=== PATIENT | male | born 2000 | race Caucasian/White ===

== ENCOUNTER 2019-07-06 21:09 | Emergency (ER) | payer SELFPAY ==
[2019-07-06 21:15] VITALS: BP 148/91; PULSE 88; RESP 17; TEMP 36.8; O2SAT 96; BMI 25.7
--- NOTE | 2019-07-06 21:42 | W.ED.GENADLT ---
HPI - General Adult General: Chief complaint: General Medical Stated complaint: sore throat Time Seen by Provider: 07/06/19 21:20 History of Present Illness: HPI narrative: Patient is a 19-year-old male who comes to the ED with a sore throat and cough. Sore throat started 2 days ago. His cough is chronic but he does say it has gotten a little worse the past couple days. Cough is productive and produces green sputum. Patient is a daily smoker. Denies any fever, nasal congestion/drainage, ear pain, shortness of breath, nausea, vomiting, abdominal pain, dysuria, hematuria, diarrhea. Pt concerned that he and his family could have been exposed to COVID-19. He works for [employer] and heard that 1 of their frequent [employer] customers tested positive for COVID- 19. Associated symptoms: Deny chest pain, dyspnea, headache(s), nausea, rash, palpitations or vomiting Review of Systems Const: Denies: fever, chills or fatigue Eyes: Denies: change in vision or eye discomfort ENMT: Reports: throat pain and painful swallowing; Denies: nasal discharge or nasal congestion Card: Denies: chest pain, palpitations, edema, swelling of feet/ankles, shortness of breath on exertion or shortness of breath when lying down Resp: Reports: productive cough; Denies: shortness of breath or non-productive cough GI: Denies: abdominal pain, nausea, vomiting, diarrhea, constipation or blood in stool : Denies: flank pain, difficulty urinating, painful urination or blood in urine Musc: Denies: neck pain, back pain or extremity swelling Skin/Breast: Denies: rash or new lesion Neuro: Denies: headache, numbness in extremities or weakness in extremities PFSH ED PFSH: Social History Smoking and tobacco status: current every day smoker Physical Exam Narrative: EXAM NARRATIVE: Patient is a 19-year-old male who is sitting comfortably on the exam chair when I enter the room. He is showing no signs of acute distress or acute respiratory distress. Const: COMMON NORMALS: oriented x3 HENMT: COMMON NORMALS: normocephalic and TM's normal bilaterally HEAD & SCALP: normocephalic TYMPANIC MEMBRANE: TM's normal bilaterally MOUTH: oral and palatal mucosa normal THROAT: uvula midline and posterior oropharynx abnormal erythema; no cobblstoning and no exudates Eye: COMMON NORMALS: PERRL PUPIL: Yes PERRL Neck/C-Spine: COMMON NORMALS: supple GENERAL: Yes normal visual inspection Lymph: LYMPHATIC: no lymphadenopathy noted (no cervical ) Resp: COMMON NORMALS: normal respiratory effort, no retractions, no use of accessory muscles and clear to auscultation bilaterally EFFORT & INSPECTION: Yes able to speak in complete sentences, No respiratory distress, No labored and No actively coughing AUSCULTATION: clear to auscultation bilaterally Cardio: COMMON NORMALS: regular rate, regular rhythm, S1 normal heart sound, S2 normal heart sound, no gallops, no clicks, no murmurs and peripheral pulses 2+ throughout RATE: regular rate RHYTHM: regular rhythm HEART SOUNDS: S1 normal and S2 normal PERIPHERAL PULSES: pulses 2+ throughout GI: COMMON NORMALS: normal to inspection, nondistended, normoactive bowel sounds, soft to palpation, non-tender and no masses PALPATION: Yes soft : COMMON NORMALS: Yes no CVA tenderness BLADDER/KIDNEY EXAM: Yes no CVA tenderness Back/Pelvis: COMMON NORMALS: no CVA tenderness Extremity: COMMON NORMALS: normal to inspection and normal capillary refill Neuro: COMMON NORMALS: oriented x3 and moves all extremities Skin: COMMON NORMALS: no rashes or lesions noted GENERAL SKIN EXAM: no rashes or lesions noted and dry skin Course Vital Signs: Vital signs: Vital Signs Temperature 98.2 F 07/06/19 21:15 Pulse Rate 59 L 07/06/19 23:37 Respiratory Rate 16 07/06/19 23:37 Blood Pressure 123/86 07/06/19 23:37 Pulse Oximetry 98 07/06/19 23:37 MDM - General Adult MDM Narrative: Medical decision making narrative: Patient is a 19-year-old male who comes into the ED with a sore throat and cough. Physical exam was unremarkable patient was showing no signs of acute respiratory distress. Lungs were clear to auscultation bilaterally. Influenza was negative and strep was negative. Chest x-ray was normal. Patient has had possible exposure to Covid- 19 positive patient. Patient was tested for COVID .and instructed on self quarantine Lab Data: Attestation: I reviewed the patient's lab results. Labs: Lab Results 07/06/19 07/06/19 Range/Units 21:36 21:36 Influenza Type A A g Negative (Negative) Influenza Type B A g Negative (Negative) Group A Strep Rapi d Negative (Negative) Imaging Data^: CXR: Attestation: I personally reviewed and interpreted this imaging study as follows: Radiologist's impression: [facility] [address] [address] XRay Report Signed Patient: Neil Gary Unit #: [id number] : 2000 Age/Sex: 19 / M ADM Date: 07/06/19 Loc: ER Room/Bed: Attending Dr: Ordering Provider/Ordering MD: Anthony Frye Date of Service: 07/06/19 Procedure(s): XR chest 1V portable [id number] Accession Number(s): [id number] Report Number: [id number] PROCEDURE INFORMATION: Exam: XR Chest, 1 View Exam date and time: 07/06/2019 9:55 PM Age: 19 years old Clinical indication: Cough TECHNIQUE: Imaging protocol: XR of the chest Views: 1 view. COMPARISON: CR Chest 1 [place] [id number] 06/30/2018 1:21 AM FINDINGS: Lungs: No CHF/pulmonary edema. Visible lungs appear essentially clear. Pleural space: No visible pneumothorax. No definite pleural fluid. Heart/Mediastinum: Heart size is within normal limits. Bones/joints: No significant acute finding. XR/XR chest 1V portable [id number] IMPRESSION: 1. Unremarkable single view chest. 2. Other findings discussed above. Dictated By: Trevor Madrigal MD Signed By: Trevor Madrigal MD Signed Date/Time: 07/06/192233 DD/ 32 Discharge Plan Discharge Patient Disposition: Home, Self-Care Clinical Impression: Viral syndrome Condition: Stable Prescriptions: No Action No Known Home Medications RF: 0 Discharge Orders: Discharge Order (Routine); Ordered 07/06/19 Ordered By: Anthony Frye Referrals: Anisha Bernard MD [Primary Care Provider] - Discharge Diet: Regular Discharge Activity: Resume usual activity and Limit activity as instructed Patient Instructions: Viral Syndrome - Adult Activity Restrictions/Additional Instructions: Follow-up with your PCP in 7 to 10 days for reevaluation. Take Tylenol for any fevers. Drink plenty fluids and stay hydrated. COVID-19 testing was performed and results should be complete in the next 48 hours. Self quarantine during that time and if you do test positive self quarantine for 14 days. Return to the ED if you are having worsening symptoms or any trouble breathing. Discharge Date/Time: 07/06/19 23:01 Coding Level of Care Code ED Communications Planner for Fariha Thomas Exam Comprehensive
--- NOTE | 2019-07-06 21:45 | XRR_ITS ---
PROCEDURE INFORMATION: Exam: XR Chest, 1 View Exam date and time: 07/06/2019 9:55 PM Age: 19 years old Clinical indication: Cough TECHNIQUE: Imaging protocol: XR of the chest Views: 1 view. COMPARISON: CR Chest 1 [place] [id number] 06/30/2018 1:21 AM FINDINGS: Lungs: No CHF/pulmonary edema. Visible lungs appear essentially clear. Pleural space: No visible pneumothorax. No definite pleural fluid. Heart/Mediastinum: Heart size is within normal limits. Bones/joints: No significant acute finding. XR/XR chest 1V portable [id number] IMPRESSION: 1. Unremarkable single view chest. 2. Other findings discussed above.
[2019-07-06 22:26] LABS: Influenza A by IFA Negative (Negative); Influenza B by IFA Negative (Negative)
[2019-07-06 22:27] LABS: Rapid Strep A Test Negative (Negative)
[2019-07-06 22:33] VITALS: BP 126/92; PULSE 82; RESP 16; O2SAT 97
[2019-07-06 23:37] VITALS: BP 123/86; PULSE 59; RESP 16; O2SAT 98
--- NOTE | 2019-07-10 10:20 | PC.NURSE ---
CALLED PT AND INFORMED HIS THAT HIS RESULTS FOR covid-19 TESTING WERE NEGATIVE.
[2019-07-10 20:55] LABS: SARS-CoV-2 RNA: NOT DETECTED
[2019-07-10 20:56] LABS: Coronavirus Overall Results See Report; Coronavirus Qual PCR Source See Report; Pan-SARS RNA: See Report; Patient Symptomatic? NOT GIVEN
== END 2019-07-06 23:01 | disposition home or self-care (01) ==
PROVIDERS: Emergency Provider Physician Assistant; PCP Family Medicine
DX: B34.9 Viral infection, unspecified (principal); F17.200 Nicotine dependence, unspecified, uncomplicated
CPT/HCPCS: 12345; 71045; 87081; 87635; 87804; 87880; 99282; 99283

== ENCOUNTER 2019-11-18 23:06 | Emergency (ER) | payer SELFPAY ==
[2019-11-18 23:15] VITALS: BP 140/91; PULSE 80; RESP 17; TEMP 36.8; O2SAT 96; BMI 24.2
--- NOTE | 2019-11-18 23:35 | W.ED.ANIMALB ---
HPI - Animal Bite General: Chief Complaint: Animal Bite Stated Complaint: TICK BITE Time Seen by Provider: 11/18/19 23:34 History of Present Illness: HPI narrative: Patient is a 19-year-old male who comes to the ED with a tick bite on right lower extremity. Patient noticed it approximately 2 to 3 days ago removed it. It has since developed a rash. He denies any other symptoms. Associated symptoms: Deny chills, fever(s) or headache(s) Review of Systems Const: Denies: fever(s), chills, body aches or fatigue Eyes: Denies: change in vision or eye discomfort ENMT: Denies: throat pain, odynophagia, nasal discharge or nasal congestion Card: Denies: chest pain, palpitations, edema, swelling of feet/ankles, dyspnea on exertion or orthopnea Resp: Denies: dyspnea, productive cough or non-productive cough GI: Denies: abdominal pain, nausea, vomiting, diarrhea, constipation or hematochezia : Denies: flank pain, difficulty urinating, dysuria or hematuria Musc: Denies: neck pain, back pain or extremity swelling Skin/Breast: Reports: rash (rash forming where tick was removed.); Denies: new lesions Neuro: Denies: headache(s), numbness in extremities or weakness in extremities PFSH ED PFSH: Medical History Crohn's disease Major depressive disorder, recurrent Nicotine dependence with current use Psychosis Social History Smoking and tobacco status: current every day smoker cigarettes Years cigarettes smoked: 4 Quit status (tobacco): not considering quitting Second hand smoke exposure: Yes Current gender identity: Male Physical Exam Const: COMMON NORMALS: no acute distress, patient oriented x3, healthy appearing and alert GENERAL APPEARANCE: cooperative and comfortable HENMT: COMMON NORMALS: normocephalic HEAD & SCALP: normocephalic MOUTH: Normal oral and palatal mucosa present THROAT: posterior oropharynx normal and uvula midline Neck/C-Spine: COMMON NORMALS: supple GENERAL: Yes normal visual inspection Resp: COMMON NORMALS: normal respiratory effort, No retractions, No use of accessory muscles and clear to auscultation bilaterally AUSCULTATION: clear to auscultation bilaterally Cardio: COMMON NORMALS: regular rate, regular rhythm, S1 normal heart sound present, S2 normal heart sound present, No gallops present (Cardio), No clicks present (Cardio), No murmurs present (Cardio) and Peripheral pulses 2+ throughout RATE: regular rate RHYTHM: regular rhythm HEART SOUNDS: S1 normal heart sound present and S2 normal heart sound present PERIPHERAL PULSES: Peripheral pulses 2+ throughout GI: COMMON NORMALS: Normal to inspection, nondistended, normoactive bowel sounds present, Soft to palpation, non-tender and no masses PALPATION: Yes Soft to palpation : COMMON NORMALS: Yes no CVA tenderness BLADDER/KIDNEY EXAM: Yes no CVA tenderness Back/Pelvis: COMMON NORMALS: no CVA tenderness Extremity: NARRATIVE EXTREMITY EXAM: Inspection of right leg (posterior side of upper leg) where tick bite was removed showed erythema migrans rash. Neuro: COMMON NORMALS: patient oriented x3 and moves all extremities SENSORIUM/ORIENTATION: Yes alert Skin: NARRATIVE SKIN EXAM: Patient had erythema migrans rash around tick bite on right upper leg. Course Vital Signs: Vital signs: Vital Signs Temperature 98.3 F 11/18/19 23:15 Pulse Rate 80 11/18/19 23:15 Respiratory Rate 16 11/19/19 00:08 Blood Pressure 140/91 11/18/19 23:15 Pulse Oximetry 96 11/18/19 23:15 MDM - Animal Bite MDM Narrative: Medical decision making narrative: Patient is a 19-year-old male who comes to the ED with tick bite on right leg that has since developed a rash. Patient says he removed tick approximately 2 to 3 days ago. Physical exam of tick bite site showed erythema migrans rash. Patient is showing no signs of any distress, physical exam was normal. Patient denies any other symptoms such as fever, chills body aches. White blood cell count 10.2 and the rest of CBC and CMP were unremarkable. Tick panel was ordered and pending. Patient was given a dose of doxycycline while here in the ED. He was discharged with a prescription for doxycycline. Patient requested PCP referral so I placed an order with case management. Patient was told that case management will be contacting him in the next several days to set up an appointment with the PCP. Return to ED precautions given. Take full course of antibiotic as prescribed. I told patient that he can call the hospital to find out tick panel results in the next 2 to 3 days. Patient understood and agreed with plan. Lab Data: Attestation: I reviewed the patient's lab results. Labs: Lab Results 11/18/19 11/18/19 Range/Units 00:00 00:00 WBC 10.2 H (4.0-10.0) 10^3/ uL RBC 4.92 (4.1-5.3) 10^6/u L Hgb 15.3 (11.7-16.6) g/dL Hct 43.4 (42.0-52.0) % MCV 88.2 (80-94) fL MCH 31.1 (28.0-34.0) pg MCHC 35.3 (30.0-36.0) g/dL RDW 12.0 L (12.1-15.1) % Plt Count 180 (130-400) 10^3/c mm MPV 9.9 (7.4-10.4) fL Neut % (Auto) 44.3 % Lymph % (Auto) 44.1 % Kerr % (Auto) 8.1 % Eos % (Auto) 2.0 % Baso % (Auto) 0.5 % Neut # (Auto) 4.53 (1.8-7.7) 10^3/u L Lymph # (Auto) 4.5 (0.8-4.8) 10^3/u L Kerr # (Auto) 0.8 (0.2-0.9) 10^3/u L Eos # (Auto) 0.2 (0.0-0.8) 10^3/u L Baso # (Auto) 0.1 (0.0-0.1) 10^3/u L Nucleated RBC % (a uto) 0 % Nucleated RBCs # 0.0 /100WBC Sodium 140 (136-145) mmol/L Potassium 3.8 (3.5-5.1) mmol/L Chloride 106 (98-107) mmol/L Carbon Dioxide 26 (22-29) mmol/L Anion Gap 11.8 (5-19) BUN 10 (6-20) mg/dL Creatinine 0.9 (0.7-1.2) mg/dL GFR Calculation 106.5 (90-130) mL/min Glucose 91 (65-115) mg/dL Calculated Osmolal ity 286 (285-295) mOsm/k g Calcium 8.9 (8.5-10.5) mg/dL Total Bilirubin 0.3 (0.15-1.2) mg/dL AST 18 (0-40) U/L ALT 26 (0-41) U/L Alkaline Phosphata se 89 (40-130) IU/L Total Protein 6.4 L (6.6-8.7) g/dL Albumin 4.4 (3.5-5.2) g/dL Globulin 2.0 (1.3-4.6) g/dL Discharge Plan Discharge Patient Disposition: Home Clinical Impression: Erythema migrans (Lyme disease) Tick bite Qualifiers: Encounter type: initial encounter Qualified Code(s): W57.XXXA - Bitten or stung by nonvenomous insect and other nonvenomous arthropods, initial encounter Condition: Stable Prescriptions: New doxycycline hyclate 100 mg capsule 100 mg PO BID 21 Days Qty: 42 RF: 0 No Action No Known Home Medications RF: 0 Discharge Orders: Discharge Order (Routine); Ordered 11/18/19 Ordered By: Anthony Frye Referrals: Anisha Bernard MD [Primary Care Provider] - Discharge Diet: Regular Discharge Activity: Resume usual activity Patient Instructions: Lyme Disease (ED), Tick Bite (ED), [place] Spotted Fever (ED) Activity Restrictions/Additional Instructions: Follow-up with medical provider as directed. Case management or primary care physician office should be contacting you in the next several days to set up appointment. Take full course of antibiotic as prescribed. Tick panel lab results will be pending. Call [facility] in the next 2-3 days to get tick panel results. return to the ER or your medical provider if condition worsens. Please read and understand discharge instructions. If any questions, please ask. Discharge Date/Time: 11/19/19 00:08 Coding Level of Care Code ED Body Presser for Fariha Thomas Exam Comprehensive
[2019-11-18 23:54] VITALS: RESP 16
[2019-11-19] MEDS: doxycycline 100 mg Tablet PO
[2019-11-19 00:08] VITALS: RESP 16
[2019-11-19 00:09] LABS: Basophils # 0.1 10^3/uL (0.0-0.1); Basophils % 0.5 %; Eosinophils # 0.2 10^3/uL (0.0-0.8); Hematocrit 43.4 % (42.0-52.0); Hemoglobin 15.3 g/dL (11.7-16.6); Lymphocytes # 4.5 10^3/uL (0.8-4.8); Lymphocytes % 44.1 %; Mean Corpuscular HGB Conc 35.3 g/dL (30.0-36.0); Mean Corpuscular Hemoglobin 31.1 pg (28.0-34.0); Mean Corpuscular Volume 88.2 fL (80-94); Mean Platelet Volume 9.9 fL (7.4-10.4); Monocytes # 0.8 10^3/uL (0.2-0.9); Monocytes % 8.1 %; Neutrophils # 4.53 10^3/uL (1.8-7.7); Neutrophils % 44.3 %; Nucleated Red Blood Cells % 0 %; Platelet Count 180 10^3/cmm (130-400); Red Blood Count 4.92 10^6/uL (4.1-5.3); White Blood Count 10.2 10^3/uL (4.0-10.0)
[2019-11-19 00:24] LABS: Alanine Aminotransferase 26 U/L (0-41); Albumin Level 4.4 g/dL (3.5-5.2); Alkaline Phosphatase 89 IU/L (40-130); Aspartate Amino Transferase 18 U/L (0-40); Blood Urea Nitrogen 10 mg/dL (6-20); Calcium 8.9 mg/dL (8.5-10.5); Carbon Dioxide 26 mmol/L (22-29); Chloride 106 mmol/L (98-107); Glomerular Filtration Rate 106.5 mL/min (90-130); Glucose 91 mg/dL (65-115); Osmolality Calculated 286 mOsm/kg (285-295); Sodium 140 mmol/L (136-145); Total Bilirubin 0.3 mg/dL (0.15-1.2); Total Protein 6.4 g/dL (6.6-8.7)
[2019-11-19 00:28] LABS: Anion Gap 11.8 (5-19); Potassium 3.8 mmol/L (3.5-5.1)
--- NOTE | 2019-11-20 10:01 | DCPLANNER ---
executive kitchen manager had message to speak with patient about getting a primary care physician. executive kitchen manager called and spoke with patient, he stated that he would like help in getting established with a primary care physician. executive kitchen manager called [facility], spoke with Marah, a follow up appointment was scheduled for Monday, December 02, 2019 at 9:[address] Perkins. executive kitchen manager called patient and gave patient the appointment information. executive kitchen manager also explained to patient the importance that if could not make the appointment to call and cancel or reschedule but not to no show the appointment. Patient stated that he understood.
[2019-11-20 12:54] LABS: Lyme AB Screen <0.90 index
[2019-11-22 17:35] LABS: RMSF IGG NOT DETECTED; RMSF IGM NOT DETECTED
[2019-11-22 22:20] LABS: E. Chaffeensis AB IGG <1:64; E. Chaffeensis AB IGM <1:20
--- NOTE | 2019-12-17 13:39 | DCPLANNER ---
Patient had a follow up appointment scheduled for 12.02.19 with [facility] - patient did attend the appointment.
== END 2019-11-19 00:08 | disposition home or self-care (01) ==
PROVIDERS: Emergency Provider Physician Assistant; PCP Family Medicine
DX: A69.20 Lyme disease, unspecified (principal); S80.861A Insect bite (nonvenomous), right lower leg, initial encounter; W57.XXXA Bitten or stung by nonvenomous insect and other nonvenomous arthropods, initial encounter; F17.210 Nicotine dependence, cigarettes, uncomplicated
CPT/HCPCS: 12345; 36415; 80053; 85025; 86618; 86666; 86757; 87040; 99281; 99283

== ENCOUNTER 2020-08-27 12:10 | Emergency (ER) | payer SELFPAY ==
[2020-08-27 12:41] VITALS: BP 124/87; PULSE 86; RESP 15; TEMP 36.4; O2SAT 97; BMI 24.3
[2020-08-27 13:32] LABS: Add Urine Microscopic? NO; Charge for UA Resulting for Rev
[2020-08-27 13:53] LABS: Bilirubin Urine 1+ (Negative); Blood Urine Neg (Negative); Glucose Urine UA Norm (Normal); Ketones Urine Negative (Negative); Leukocyte Esterase Urine Negative (Negative); Nitrate Urine Negative (Negative); Protein Urine Neg (Negative); Specific Gravity, Urine 1.015 (1.005-1.030); Urine Appearance Clear (CLEAR); Urine Color Yellow (Yellow); Urobilinogen Urine 1 mg/dL (Negative); pH Urine 5 (5-7)
[2020-08-27 13:54] LABS: Basophils % 0.5 %; Eosinophils # 0.1 10^3/uL (0.0-0.8); Eosinophils % 1.1 %; Hematocrit 47.6 % (42.0-52.0); Hemoglobin 17.1 g/dL (11.7-16.6); Lymphocytes % 24.5 %; Mean Corpuscular HGB Conc 35.9 g/dL (30.0-36.0); Mean Corpuscular Hemoglobin 30.6 pg (28.0-34.0); Mean Corpuscular Volume 85.3 fL (80-94); Mean Platelet Volume 9.3 fL (7.4-10.4); Monocytes # 0.9 10^3/uL (0.2-0.9); Monocytes % 10.8 %; Neutrophils # 5.16 10^3/uL (1.8-7.7); Neutrophils % 61.9 %; Nucleated Red Blood Cells % 0 %; Platelet Count 199 10^3/cmm (130-400); Red Blood Count 5.58 10^6/uL (4.1-5.3); Red Cell Distribution Width 11.9 % (12.1-15.1); White Blood Count 8.3 10^3/uL (4.0-10.0)
[2020-08-27 14:31] LABS: Alanine Aminotransferase 49 U/L (0-41); Albumin Level 4.9 g/dL (3.5-5.2); Alkaline Phosphatase 123 IU/L (40-130); Anion Gap 15.9 (5-19); Aspartate Amino Transferase 23 U/L (0-40); Blood Urea Nitrogen 7 mg/dL (6-20); Carbon Dioxide 25 mmol/L (22-29); Chloride 101 mmol/L (98-107); Globulin 1.9 g/dL (1.3-4.6); Glucose 86 mg/dL (65-115); Lipase 19 U/L (13-60); Osmolality Calculated 283 mOsm/kg (285-295); Potassium 3.9 mmol/L (3.5-5.1); Sodium 138 mmol/L (136-145); Total Bilirubin 0.7 mg/dL (0.15-1.2); Total Protein 6.8 g/dL (6.6-8.7)
--- NOTE | 2020-08-27 14:34 | CT_ITS ---
WS: [id number] CT ABDOMEN AND PELVIS WITH CONTRAST HISTORY: RLQ pain, rebound tenderness TECHNIQUE: Imaging performed of the abdomen and pelvis with IV contrast. Single phase imaging of the abdomen. Coronal and sagittal reformats are submitted. All CT scans at [facility] use at least one of these dose optimization techniques: automated exposure control; mA and/or kV adjustment per patient size (includes targeted exams where dose is matched to clinical indication); or iterativ e reconstruction. IV CONTRAST: Omnipaque 300; 95 mL IV. Oral contrast: No DLP: 1134.45 mGy.cm COMPARISON: None available. Lower thorax: Lung bases are clear. Heart is normal size. No hiatal hernia. Liver/biliary system: Normal size with no intrahepatic dilatation. Gallbladder: Normal. No gallstones or wall thickening. No pericholecystic fluid. Pancreas: Normal size pancreas and pancreatic duct. No adjacent inflammation. Spleen: Normal size spleen. No mass or infarct. Adrenal glands: Normal. Right kidney: Normal. Left kidney: Normal. Aorta: Normal. Lymphadenopathy: None. Free fluid: None. GI tract: Normal appendix. No GI tract obstruction. Abdominal wall: Unremarkable abdominal wall. No hernia. Pelvis: Dense calcifications in the pelvis associated with the seminal vesicles. No bladder calcifica tions. Bones: Unremarkable. CT/CT abdomen pelvis w con* [id number] IMPRESSION: 1. Normal appendix. 2. No renal obstruction. 3. No enhancing masses or ascites.
[2020-08-27 14:50] VITALS: RESP 15
[2020-08-27] MEDS: iohexol 300 mg/mL 100 mL Btl IV (15:08)
--- NOTE | 2020-08-27 15:17 | ED_ITS ---
HPI - Abdominal Pain General: Chief Complaint: Abdominal Pain Stated Complaint: abd pain, N/D Time Seen by Provider: 08/27/20 14:12 Source: patient Mode of arrival: ambulatory Limitations: no limitations History of Present Illness: HPI narrative: Patient is a 20-year-old male with no significant past medical history who presents to the emergency department with periumbilical abdominal pain and nausea. Symptoms started yesterday and has progressively worsened. No vomiting. He had a few episodes of diarrhea today. Appetite is significantly decreased. Pain is said to be severe and crampy in nature. No fever. No sick contacts. MD elicited complaint: abdominal pain Pertinent past history: none Onset (ago): day(s) (1) Pain Consistency: constant Location: Periumbilical Severity: severe Quality: cramping Radiation: none Migration to: RLQ Exacerbating factors: nothing Relieving factors: nothing Associated Symptoms: Reports anorexia and nausea; Denies belching, bloating, change in bowel habits, change in stool character, chills, coffee ground emesis, constipation, GI cramping, diarrhea, dyspepsia, dysuria, excessive flatus, fever(s), heartburn, hematochezia, hematuria, hematemesis, fecal incontinence, loose stools, melena, poor appetite, syncope and vomiting Review of Systems General: Reports: 10 or more systems reviewed and unremarkable except in HPI and below Const: Denies: fever(s) or chills Card: Denies: syncope GI: Reports: nausea; Denies: vomiting, hematemesis, coffee ground emesis, heartburn, diarrhea, constipation, bloating, GI cramping, belching, excessive flatus, fecal incontinence, change in bowel habits, change in stool character, hematochezia or melena : Denies: dysuria or hematuria PFS ED PFSH: Medical History (Updated 08/27/20 @ 15:37 by Ton Wang MD, [facility] [place]) Crohn's disease Major depressive disorder, recurrent Nicotine dependence with current use Psychosis Social History (Reviewed 08/27/20 @ 15:25 by Ton Wang MD, [facility] [place]) Smoking and tobacco status: current every day smoker cigarettes Packs smoked per day: 0.5 Years cigarettes smoked: 4 Quit status (tobacco): not considering quitting Second hand smoke exposure: Yes Alcohol intake: former Current gender identity: Male Physical Exam Const: COMMON NORMALS: no acute distress, average body habitus, patient oriented x3, no limitations, healthy appearing, alert and well nourished HENMT: COMMON NORMALS: normocephalic, atraumatic and moist oral mucous membranes HEAD & SCALP: normocephalic and atraumatic Neck/C-Spine: COMMON NORMALS: no meningeal signs and no JVD Resp: COMMON NORMALS: normal respiratory effort, No retractions, No use of accessory muscles, clear to auscultation bilaterally and percussion normal AUSCULTATION: clear to auscultation bilaterally PERCUSSION: percussion normal Cardio: COMMON NORMALS: no JVD, regular rate, regular rhythm, S1 normal heart sound present, S2 normal heart sound present, No gallops present (Cardio), No clicks present (Cardio), No murmurs present (Cardio), No rub (Cardio) and Peripheral pulses 2+ throughout RATE: regular rate RHYTHM: regular rhythm HEART SOUNDS: S1 normal heart sound present and S2 normal heart sound present PERIPHERAL PULSES: Peripheral pulses 2+ throughout GI: COMMON NORMALS: Normal to inspection, nondistended, normoactive bowel sounds present, Soft to palpation, non-tender, No hepatosplenomegaly present, no masses and no bruits PALPATION: Yes Soft to palpation, Yes Tenderness to palpation present (GI) Details: RLQ, Yes Guarding due to palpation present (GI), Yes No hepatosplenomegaly present and Yes Rebound tenderness present Details: McBurney's point Extremity: COMMON NORMALS: normal to inspection, full ROM, capillary refill normal, no calf tenderness and no pedal edema Neuro: COMMON NORMALS: patient oriented x3 SENSORIUM/ORIENTATION: Yes alert MENINGEAL SIGNS: Yes no meningeal signs Skin: COMMON NORMALS: no rashes or lesions noted, no wounds, turgor normal, no jaundice, no petechiae and no mottling GENERAL SKIN EXAM: no rashes or l esions noted and turgor normal Course Reevaluation(s): Reevaluation #1: Discussed his lab and imaging findings with him. Negative for acute findings. No signs of appendicitis on CT scan. We will discharge him home with no new orders. He voiced understanding and is in agreement with the plan. Time: 15:37 Vital Signs: Vital signs: Vital Signs Temperature 97.5 F L 08/27/20 12:41 Pulse Rate 86 08/27/20 12:41 Respiratory Rate 15 08/27/20 15:44 Blood Pressure 124/87 08/27/20 12:41 Pulse Oximetry 97 08/27/20 12:41 MDM - Abdominal Pain MDM Narrative: Medical decision making narrative: 21-year-old male who presented to the emergency department with abdominal pain. Examination was concerning for acute appendicitis and so a CT scan of his abdomen and pelvis were done. CT scan was negative for acute findings. Lab work was also unremarkable. He is discharged home with no new orders. Medical Records: Attestation: I reviewed the patient's medical records. Lab Data: Attestation: I reviewed the patient's lab results. Labs: Lab Results 08/27/20 08/27/20 08/27/20 Range/Units 13:11 13:46 13:46 WBC 8.3 (4.0-10.0) 10^3/ uL RBC 5.58 H (4.1-5.3) 10^6/u L Hgb 17.1 H (11.7-16.6) g/dL Hct 47.6 (42.0-52.0) % MCV 85.3 (80-94) fL MCH 30.6 (28.0-34.0) pg MCHC 35.9 (30.0-36.0) g/dL RDW 11.9 L (12.1-15.1) % Plt Count 199 (130-400) 10^3/c mm MPV 9.3 (7.4-10.4) fL Neut % (Auto) 61.9 % Lymph % (Auto) 24.5 % [place] % (Auto) 10.8 % Eos % (Auto) 1.1 % Baso % (Auto) 0.5 % Neut # (Auto) 5.16 (1.8-7.7) 10^3/u L Lymph # (Auto) 2.0 (0.8-4.8) 10^3/u L [place] # (Auto) 0.9 (0.2-0.9) 10^3/u L Eos # (Auto) 0.1 (0.0-0.8) 10^3/u L Baso # (Auto) 0.0 (0.0-0.1) 10^3/u L Nucleated RBC % (a uto) 0 % Nucleated RBCs # 0.0 /100WBC Sodium 138 (136-145) mmol/L Potassium 3.9 (3.5-5.1) mmol/L Chloride 101 (98-107) mmol/L Carbon Dioxide 25 (22-29) mmol/L Anion Gap 15.9 (5-19) BUN 7 (6-20) mg/dL Creatinine 0.7 (0.7-1.2) mg/dL GFR Calculation 141.0 H (90-130) mL/min Glucose 86 (65-115) mg/dL Calculated Osmolal ity 283 L (285-295) mOsm/k g Calcium 9.0 (8.5-10.5) mg/dL Total Bilirubin 0.7 (0.15-1.2) mg/dL AST 23 (0-40) U/L ALT 49 H (0-41) U/L Alkaline Phosphata se 123 (40-130) IU/L C-Reactive Protein (0.0-4.9) mg/L Total Protein 6.8 (6.6-8.7) g/dL Albumin 4.9 (3.5-5.2) g/dL Globulin 1.9 (1.3-4.6) g/dL Lipase 19 (13-60) U/L Urine Color Yellow (Yellow) Urine Appearance Clear (CLEAR) Urine pH 5 (5-7) Ur Specific Gravit y 1.015 (1.005-1.030) Urine Protein Neg (Negative) Urine Glucose (UA) Norm (Normal) Urine Ketones Negative (Negative) Urine Blood Neg (Negative) Urine Nitrate Negative (Negative) Urine Bilirubin 1+ H (Negative) Urine Urobilinogen 1 H (Negative) mg/dL Ur Leukocyte Danielle ase Negative (Negative) 08/27/20 Range/Units 13:50 WBC (4.0-10.0) 10^3/ uL RBC (4.1-5.3) 10^6/u L Hgb (11.7-16.6) g/dL Hct (42.0-52.0) % MCV (80-94) fL MCH (28.0-34.0) pg MCHC (30.0-36.0) g/dL RDW (12.1-15.1) % Plt Count (130-400) 10^3/c mm MPV (7.4-10.4) fL Neut % (Auto) % Lymph % (Auto) % [place] % (Auto) % Eos % (Auto) % Baso % (Auto) % Neut # (Auto) (1.8-7.7) 10^3/u L Lymph # (Auto) (0.8-4.8) 10^3/u L [place] # (Auto) (0.2-0.9) 10^3/u L Eos # (Auto) (0.0-0.8) 10^3/u L Baso # (Auto) (0.0-0.1) 10^3/u L Nucleated RBC % (a uto) % Nucleated RBCs # /100WBC Sodium (136-145) mmol/L Potassium (3.5-5.1) mmol/L Chloride (98-107) mmol/L Carbon Dioxide (22-29) mmol/L Anion Gap (5-19) BUN (6-20) mg/dL Creatinine (0.7-1.2) mg/dL GFR Calculation (90-130) mL/min Glucose (65-115) mg/dL Calculated Osmolal ity (285-295) mOsm/k g Calcium (8.5-10.5) mg/dL Total Bilirubin (0.15-1.2) mg/dL AST (0-40) U/L ALT (0-41) U/L Alkaline Phosphata se (40-130) IU/L C-Reactive Protein 17.4 H (0.0-4.9) mg/L Total Protein (6.6-8.7) g/dL Albumin (3.5-5.2) g/dL Globulin (1.3-4.6) g/dL Lipase (13-60) U/L Urine Color (Yellow) Urine Appearance (CLEAR) Urine pH (5-7) Ur Specific Gravit y (1.005-1.030) Urine Protein (Negative) Urine Glucose (UA) (Normal) Urine Ketones (Negative) Urine Blood (Negative) Urine Nitrate (Negative) Urine Bilirubin (Negative) Urine Urobilinogen (Negative) mg/dL Ur Leukocyte Danielle ase (Negative) Imaging Data ^: CT Abd/Pel: Attestation: I personally reviewed and interpreted this imaging study as follows: Radiologist's impression: [address] [id number] Scan ReportSigned Patient: Neil Gary #: [id number]: [id number]#:[id number]/Sex: 20 / MADM Date: 08/27/20Loc: ERRoom/Bed:Attending Dr: Ordering Provider/Ordering MD: Ton Wang MD, [facility] [place] Date of Service: 08/27/20 Procedure(s): CT abdomen pelvis w con* [id number] Accession Number(s): [id number] Report Number: [id number] WS: [id number] CT ABDOMEN AND PELVIS WITH CONTRAST HISTORY: RLQ pain, rebound tenderness TECHNIQUE: Imaging performed of the abdomen and pelvis with IV contrast. Single phase imaging of the abdomen. Coronal and sagittal reformats are submitted. All CT scans at [facility] use at least one of these dose optimization techniques: automated exposure control; mA and/or kV adjustment per patient size (includes targeted exams where dose is matched to clinical indication); or iterative reconstruction. IV CONTRAST: Omnipaque 300; 95 mL IV. Oral contrast: No DLP: 1134.45 mGy.cm COMPARISON: None available. Lower thorax: Lung bases are clear. Heart is normal size. No hiatal hernia. Liver/biliary system: Normal size with no intrahepatic dilatation. Gallbladder: Normal. No gallstones or wall thickening. No pericholecystic fluid. Pancreas: Normal size pancreas and pancreatic duct. No adjacent inflammation. Spleen: Normal size spleen. No mass or infarct. Adrenal glands: Normal. Right kidney: Normal. Left kidney: Normal. Aorta: Normal. Lymphadenopathy: None. Free fluid: None. GI tract: Normal appendix. No GI tract obstruction. Abdominal wall: Unremarkable abdominal wall. No hernia. Pelvis: Dense calcifications in the pelvis associated with the seminal vesicles. No bladder calcifications. Bones: Unremarkable. CT/CT abdomen pelvis w con* [id number] IMPRESSION: 1. Normal appendix. 2. No renal obstruction. 3. No enhancing masses or ascites. Dictated By:Flores Mansfield DOSigned By:Flores Mansfield DOSigned Date/Time:08/27/206DD/ 10 Discharge Plan Discharge Patient Disposition: Home Clinical Impression: Abdominal pain Qualifiers: Abdominal location: right lower quadrant Qualified Code(s): R10.31 - Right lower quadrant pain Condition: Stable Prescriptions: Continued doxycycline hyclate 100 mg capsule 100 mg PO BID 10 Days Qty: 20 RF: 0 naproxen 500 mg tablet 500 mg PO BID PRN (Reason: pain) 30 Days Qty: 60 RF: 0 Discharge Orders: Discharge ED (Routine); Ordered 08/27/20 Ordered By: Ton Wang Referrals: Anisha Bernard MD [Primary Care Provider] - 1-3 days Discharge Diet: Usual diet Discharge Activity: Increase activity as tolerated Patient Instructions: Abdominal Pain (ED) Activity Restrictions/Additional Instructions: Return for any new or worsening symptoms. Follow-up with your primary care provider within 3 days. Take Tylenol or ibuprofen as needed for pain. Coding Level of Care Code ED Junior Project Manager for Chg Fwd Exam Comprehensive
[2020-08-27 15:19] LABS: C Reactive Protein 17.4 mg/L (0.0-4.9)
[2020-08-27 15:44] VITALS: RESP 15
== END 2020-08-27 15:45 | disposition home or self-care (01) ==
PROVIDERS: Family Medicine; Emergency Provider Family Medicine; PCP Family Medicine
DX: R10.31 Right lower quadrant pain (principal); F17.210 Nicotine dependence, cigarettes, uncomplicated
CPT/HCPCS: 36415; 74177; 80053; 81003; 83690; 85025; 86140; 99283; Q9967